=== PATIENT | female | born 1960 | race Asian ===

== ENCOUNTER 2017-02-18 21:54 | Inpatient (IN) | payer BC, MEDICAID ==
--- NOTE | 2017-02-18 22:19 | ED Physician Chart ---
Chief Complaint/HPI - Patient Information Date Seen:: 02/18/17 Time Seen:: 22:05 Chief Complaint:: Recurrent nausea/vomiting since 7 pm today. History of Present Illness:: Brought in by private auto for the above reason. Vomitus consisted of gastric content. No hematemesis. Pt has had intermittent upper abdominal cramp. No known precipitating, aggravating, or relieving factors. No fever. Last BM just before coming to ER, normal in color/consistency. No hematochezia or melena. Pt ate unusal foodstuff (raw cucumber) prior to onset of her symptoms. No recent travel, antibiotic use, or ingestion of contaminated food or liquid. Allergies:: NKA Vitals:: see Nurse Note. Historian:: Patient Family MD/PCP:: Dr. Patricia LMP:: Postmenopausal Review:: Nurse's Note Reviewed Review of Systems - Review of Systems General/Constitutional: No fever, No chills, No weight loss, No weakness, No diaphoresis, No edema, No loss of appetite Skin: No skin lesions, No rash, No bruising Head: No headache, No light-headedness Eyes: No loss of vision, No pain, No diplopia ENT: No earache, No nasal drainage, No sore throat Neck: No neck pain, No swelling, No thyromegaly, No stiffness, No mass noted Cardio Vascular: No chest pain, No palpitations Pulmonary: No SOB, No cough, No wheezing GI: Nausea, Vomiting, No diarrhea, Pain (cramp), No melena, No hematochezia, No constipation, No hematemesis G/U: No dysuria, No frequency, No hematuria Tear Down Man: No vaginal discharge, No abnormal vaginal bleed Musculoskeletal: No bone or joint pain, No back pain, No muscle pain Endocrine: No polyuria, No polydipsia Psychiatric: No prior psych history Hematopoietic: No bruising, No lymphadenopathy Allergic/Immuno: No urticaria, No angioedema Neurological: No syncope, No focal symptoms, No weakness, No paresthesia, No headache, No dizziness, No confusion, No vertigo Past Medical History - Past Medical History Past Medical History: No significant medical hx Family History: None Social History: Non Smoker, No Alcohol, No Drug Use, , Lives Alone, Employed Employment:: bilingual student tutor Surgical History: None Psychiatricy History: None Medication: None (9+8) Family Medical History - Family Member Mother History Unknown: Yes Physical Exam - Physical Examination General/Constitutional: Awake, Well-developed, well-nourished, Alert, GCS 15, Non-toxic appearing, Ambulatory Other Gen/Cons comments:: Breathes comfortably, speaks clearly, and ambulates without difficulty. Pt appears to be in moderate distress due to abdominal pain. Head: Atraumatic Eyes: Lids, conjuctiva normal, PERRL, EOMI Other Eyes comments:: anicteric sclera. Skin: Nl inspection, No rash, No skin lesions, No ecchymosis, Well hydrated, No lymphadenopathy ENMT: External ears, nose nl, Nasal exam nl, Lips, teeth, gums nl, Oropharynx nl Neck: Nontender, Full ROM w/o pain, No JVD, No nuchal rigidity, No mass, No stridor Respiratory: Nl effort/Exclusion, Clear to Auscultation, No Wheeze/Rhonchi/Rales Cardio Vascular: RRR, No murmur, gallop, rubs GI: No organomegaly, No hernia, Normal BS's, Nondistended, No mass/bruits, No McBurney tenderness Other GI comments:: Tenderness to palpation at epigastric region. No R/G. Negative Jose's, Soto' s and Hartley Aburto's signs. : No CVA tenderness Extremities: No tenderness or effusion, Full ROM, normal strength in all extremities, No edema, Normal digits & nails Neuro/Psych: Alert/oriented (oriented x 3), Normal gait, No focal deficits Labs/Radiology/EKG Results - Lab Results Results: Laboratory Tests 02/18/17 02/18/17 02/18/17 22:23 22:38 22:38 WBC 13.6 H RBC 4.35 Hgb 13.4 Hct 39.1 MCV 89.9 MCH 30.8 MCHC Differential 34.2 RDW 12.9 Plt Count 200 MPV 8.5 Neutrophils % 82.3 H Lymphocytes % 9.2 L Monocytes % 6.9 Eosinophils % 1.2 Basophils % 0.4 PT 9.7 INR 0.93 PTT (Actin FS) 23.7 L Sodium Potassium Chloride Carbon Dioxide Anion Gap BUN Creatinine Est GFR ( Amer) Est GFR (Non-Af Amer) BUN/Creatinine Ratio Glucose Whole Bld Lactic Acid Calcium Total Bilirubin AST ALT Alkaline Phosphatase Creatine Kinase Troponin I Total Protein Albumin Globulin Albumin/Globulin Ratio Amylase Lipase Urine Source CLEAN C Urine Color YELLOW Urine Clarity HAZY Urine pH 8.5 Ur Specific [place] 1.015 Urine Protein 30 H Urine Glucose (UA) NEGATIVE Urine Ketones TRACE Urine Blood NEGATIVE Urine Nitrate NEGATIVE Urine Bilirubin NEGATIVE Urine Urobilinogen 0.2 Ur Leukocyte Esterase NEGATIVE Urine RBC 0-2 Urine WBC 0-2 Ur Epithelial Cells FEW Amorphous Sediment MODERATE PHOSPHATES Urine Bacteria FEW 02/18/17 02/18/17 02/18/17 22:38 22:38 22:38 WBC RBC Hgb Hct MCV MCH MCHC Differential RDW Plt Count MPV Neutrophils % Lymphocytes % Monocytes % Eosinophils % Basophils % PT INR PTT (Actin FS) Sodium 135 L Potassium 3.5 Chloride 102 Carbon Dioxide 26.5 Anion Gap 10.0 BUN 21 Creatinine 0.7 Est GFR ( Amer) > 60.0 Est GFR (Non-Af Amer) > 60.0 BUN/Creatinine Ratio 30.0 Glucose 132 H Whole Bld Lactic Acid 2.27 H* Calcium 9.6 Total Bilirubin 0.6 AST 82 H ALT 51 Alkaline Phosphatase 60 Creatine Kinase 81 Troponin I Total Protein 7.4 Albumin 4.5 Globulin 2.9 Albumin/Globulin Ratio 1.6 Amylase 46 Lipase 65 Urine Source Urine Color Urine Clarity Urine pH Ur Specific [place] Urine Protein Urine Glucose (UA) Urine Ketones Urine Blood Urine Nitrate Urine Bilirubin Urine Urobilinogen Ur Leukocyte Esterase Urine RBC Urine WBC Ur Epithelial Cells Amorphous Sediment Urine Bacteria 02/18/17 22:38 WBC RBC Hgb Hct MCV MCH MCHC Differential RDW Plt Count MPV Neutrophils % Lymphocytes % Monocytes % Eosinophils % Basophils % PT INR PTT (Actin FS) Sodium Potassium Chloride Carbon Dioxide Anion Gap BUN Creatinine Est GFR ( Amer) Est GFR (Non-Af Amer) BUN/Creatinine Ratio Glucose Whole Bld Lactic Acid Calcium Total Bilirubin AST ALT Alkaline Phosphatase Creatine Kinase Troponin I < 0.01 L Total Protein Albumin Globulin Albumin/Globulin Ratio Amylase Lipase Urine Source Urine Color Urine Clarity Urine pH Ur Specific [place] Urine Protein Urine Glucose (UA) Urine Ketones Urine Blood Urine Nitrate Urine Bilirubin Urine Urobilinogen Ur Leukocyte Esterase Urine RBC Urine WBC Ur Epithelial Cells Amorphous Sediment Urine Bacteria - Radiology Results Results: CT of abdomen and pelvis without IV contrast: There are two calcific densities seen within the distal common bile duct measuring 3 and 4 mm, likely representing choledocholitiasis. The common bile duct is mildly dilated measuring 9 mm. Gallstone with out CT evidence of acute cholecystitis. Additional findings: 8 mm hypodensity witin hepatic segment, which is nonspecific. the spleen, pancreas, and adrenal glands are unremarkable. The kidneys, ureters and urinary bladder are unremarkable. Uterus and adnexa are unremarkable. the appendix is unremarkable. Stomach, small bowel, and colon are unremarkable. No free fluid. No free air. No acute osseous abnormality. Official report per Dr. Leoncio Grimm, radiologist. - EKG Interpretations EKG Time:: 23:29 Rate & Rhythm: NSR with sinus dysrrhythmia. VR 50 to 100 Comments:: No acute ischemic changes. ED Septic Shock - . Is Septic Shock (SBP<90, OR Lactate>4 mmol\L) present?: No Reassessment (Disposition) - Reassessment Reassessment:: 2335 Pt has been repeatedly evaluated. Pt overall feels better. Pt's VR varies from 50 to 100. 12 lead EKG was done and reviewed. 0004 Pt remains stable. Her upper abdominal pain recurs. Pt requests more pain control. Lab and EKG findings have been reviewed with pt. CT report is pending. 0100 CT report just became available. CT findings have been reviewed with pt. Management plan has been discussed. Admitting physician is to be contacted. 0115 Case was discussed with Dr. Lai with pertinent H & P, EKG, CT, and lab findings reviewed. Pt is to be admitted to [facility] under his care. Reassessment Condition:: Improved - Diagnosis Diagnosis:: Abdominal pain related to acute choledocholithiasis, stable and improved. Sinus dysrrhythmia. Consider sick sinus syndrome. - Patient Disposition Admitted to:: Telemetry Admitting Medical Physician:: Dori Lai Time:: 01:18 Condition at Disposition:: Stable, Improved
[2017-02-18] MEDS ORDERED: HYDROmorphone 1 mg/mL 1mL Syr IVP STA (22:32)
[2017-02-18] MEDS ORDERED: HYDROmorphone 1 mg/mL 1mL Syr ONE (22:41)
[2017-02-18 22:46] LABS: % BASOPHILS 0.4 % (0.0-2.0); % EOSINOPHILS 1.2 % (0.0-5.0); % LYMPHOCYTES 9.2 % (20.0-50.0); % MONOCYTES 6.9 % (2.0-10.0); % NEUTROPHILS 82.3 % (40.0-80.0); HEMATOCRIT 39.1 % (35.0-45.0); HEMOGLOBIN 13.4 gm/dL (11.7-15.5); MEAN CELL VOLUME 89.9 fl (81-100); MEAN CORPUSCULAR HEMOGLOBIN 30.8 pg (27.0-31.0); MEAN CORPUSCULAR HGB CONC 34.2 pg (28.0-36.0); MEAN PLATELET VOLUME 8.5 fl; NEUTROPHILE ABSOLUTE 11.1 Th/cmm (1.8-8.0); PLATELET COUNT 200 Th/cmm (150-400); RED BLOOD COUNT 4.35 Mil/cmm (3.80-5.10); RED CELL DISTRIBUTION WIDTH 12.9 % (11.5-20.0)
[2017-02-18 22:50] LABS: WHITE BLOOD COUNT 13.6 Th/cmm (4.8-10.8)
[2017-02-18 23:00] LABS: INR 0.93 (0.5-1.4); PROTHROMBIN TIME (TEST) 9.7 SECONDS (9.5-11.5)
[2017-02-18 23:02] LABS: ALB/GLOB RATIO 1.6 (1.0-1.8); ALKALINE PHOSPHATASE 60 U/L (34-104); AMYLASE SERUM 46 U/L (29-103); BILIRUBIN,TOTAL 0.6 mg/dL (0.3-1.0); BUN - UREA NITROGEN 21 mg/dL (7-25); CALCIUM SERUM 9.6 mg/dL (8.6-10.3); CARBON DIOXIDE 26.5 mEq/L (21.0-31.0); CHLORIDE 102 mEq/L (98-107); CREATININE - SERUM 0.7 mg/dL (0.6-1.2); GLUCOSE 132 mg/dL (70-105); LIPASE 65 U/L (11-82); POTASSIUM SERUM 3.5 mEq/L (3.5-5.1); SGOT 82 U/L (13-39); SGPT/ALT 51 U/L (7-52); SODIUM SERUM 135 mEq/L (136-145)
[2017-02-18] MEDS ORDERED: Sodium Chloride 0.9% 500 ML IV ONE (23:22)
[2017-02-18 23:50] LABS: URINE BILIRUBIN NEGATIVE (NEGATIVE); URINE COLOR YELLOW; URINE GLUCOSE (UA) NEGATIVE (NEGATIVE); URINE KETONE TRACE mg/dL (NEGATIVE)
[2017-02-18 23:51] LABS: URINE AMORPHOUS SEDIMENT MODERATE PHOSPHATES (NONE SEEN); URINE BACTERIA FEW /hpf (NONE SEEN); URINE BLOOD NEGATIVE (NEGATIVE); URINE EPITHELIAL CELLS FEW /lpf (FEW); URINE PH 8.5; URINE PROTEIN 30 mg/dL (NEGATIVE); URINE RBC 0-2 /hpf (0-5); URINE UROBILINOGEN 0.2 E.U./dL (0.2 - 1.0); URINE WBC 0-2 /hpf (0-5)
[2017-02-19] MEDS ORDERED: HYDROmorphone 1 mg/mL 1mL Syr IVP STA (00:02)
[2017-02-19] MEDS ORDERED: HYDROmorphone 1 mg/mL 1mL Syr ONE (00:10)
[2017-02-19] MEDS ORDERED: Ampicillin Sodium/Sulbactam 3 GM in Sodium Chloride 0.9% 100 ML IV ONE (01:03)
--- NOTE | 2017-02-19 03:14 | Admit Criteria Form ---
Admit Criteria Forms - Admit Criteria Diagnosis: ABDOMINAL PAIN Clinical Indications for Admission to Inpatient Care (Place 'X' for any and all applicable criteria): Admission is indicated for ANY ONE of the following(1)(2)(3)(4)(5): [X]I. Inpatient admission required rather than observation care (Also use Abdominal Pain: Observation Care, as appropriate) because of ANY ONE of the following: [ ]a) Severe pain requiring acute inpatient management [X]b) Identification of etiology/finding that requires inpatient care (eg, aortic dissection, free air) [ ]c) Absent bowel sounds with complete ileus(6) [ ]d) Suspected toxic megacolon [ ]e) Severe electrolyte abnormalities requiring inpatient care [ ]f) High fever or infection requiring inpatient admission as indicated by ANY ONE of following(7)(8): [ ] i) Appropriate outpatient or observational care antimicrobial treatment unavailable, not effective, or not feasible [ ] ii) Documented bacteremia [ ] iii) Temperature > 104.9 degrees F (oral) [ ] iv) T >103.1 F (oral) or < 96.8 F(rectal) that does not respond to all emergency treatment measures [ ]g) Signs of intestinal obstruction [B] [ ]h) Hemodynamic instability [ ]i) IV fluid to replace significant ongoing losses (greater than 3 L/m2 per day) (12)(13) [ ]j) Percutaneous or open drainage (eg, abscess, biliary tract ) procedures [ ]k) Parenteral nutrition regimen that must be implemented on inpatient basis [ ]l) Other condition,treatment or monitoring requiring inpatient admission. [ ]II. Peritoneal signs present [ ]III. Surgery needed that cannot be performed on an ambulatory basis. [ ]IV. Evaluation requires patient to not eat or drink for extended period ( eg, more than 24 hours). [ ]V. Contraindications and/or Inappropriate clinical situations for Observational Care in patients with abdominal pain, when ANY ONE of the following is required: [ ]a) Thorough evaluation is required to prevent catastrophic events due to delays in diagnosing (e.g.Mesenteric ischemia) 1,3 [ ]b) Patient with severe pathology or with chronic symptoms unlikely to improve in the ED stay (3) [ ]. General contraindications and/or Inappropriate clinical situations for Observational Care in patients with abdominal pain, when ANY ONE of the following is required: [ ]a) Prediction of prolongation of LOS based on ANY ONE of the following may be considered as a contraindication for observational care 2, 3, 4, 5, 6, 7, 8, 9, 10, 11 [ ]i) Age > 65 yrs. [ ]ii) Patient arriving by ambulance [ ]iii) Patient with high acuity [ ]iv) Patient requiring vital sign monitoring [ ]v) Patient on IV medication [ ]b) Systolic blood pressures 180mmHg 3,12 [ ]c) Patient with altered mental status including delirium and other alteration of consciousness, (3) [ ]d) Patient whose discharge disposition will be to a senior living home or rehabilitation home should not be managed in Emergency Department Observation Unit. CMS rule requires 3 days hospital stay before such placement.3,13 [ ]e) Patient with failure to thrive due to broad array of etiologies 3,16,17 [ ]f) Inability to ambulate 3,14 Extended stay beyond goal length of stay may be needed for(2)(3): [ ]a) Persistent abdominal pain with suspected intra-abdominal process [ ]b) Diagnosed condition requiring continued stay (e.g., pancreatitis, complicated diverticulitis) [ ]c) Surgery (e.g., colectomy) The original [employer] content created by [employer] has been revised. The portions of the content which have been revised are identified through the use of italic text or in bold, and [email or web address] has neither reviewed nor approved the modified material.All other unmodified content is copyright [email or web address]. Please see references footnoted in the original [email or web address] edition 2016
[2017-02-19] MEDS ORDERED: Morphine Sulfate 2 mg/mL 1mL Syr IVP PRN (03:54)
[2017-02-19] MEDS ORDERED: Levofloxacin 750mg/150mL 750 MG/150 ML BAG IV SCH (04:00)
[2017-02-19] MEDS: metroNIDAZOLE 500mg/NS 100mL 500 MG/100 ML BAG IV SCH ×2 (05:28→13:28)
[2017-02-19 07:23] LABS: % BASOPHILS 0.1 % (0.0-2.0); % EOSINOPHILS 0.1 % (0.0-5.0); % LYMPHOCYTES 8.4 % (20.0-50.0); % MONOCYTES 2.8 % (2.0-10.0); % NEUTROPHILS 88.6 % (40.0-80.0); HEMATOCRIT 34.8 % (35.0-45.0); HEMOGLOBIN 12.1 gm/dL (11.7-15.5); MEAN CELL VOLUME 90.3 fl (81-100); MEAN CORPUSCULAR HEMOGLOBIN 31.3 pg (27.0-31.0); MEAN CORPUSCULAR HGB CONC 34.6 pg (28.0-36.0); MEAN PLATELET VOLUME 8.8 fl; NEUTROPHILE ABSOLUTE 8.5 Th/cmm (1.8-8.0); PLATELET COUNT 179 Th/cmm (150-400); RED BLOOD COUNT 3.86 Mil/cmm (3.80-5.10); RED CELL DISTRIBUTION WIDTH 12.9 % (11.5-20.0)
[2017-02-19 07:41] LABS: ALB/GLOB RATIO 1.6 (1.0-1.8); ALKALINE PHOSPHATASE 56 U/L (34-104); ANION GAP 12.2 (7.0-16.0); BILIRUBIN,TOTAL 0.6 mg/dL (0.3-1.0); BUN - UREA NITROGEN 18 mg/dL (7-25); CALCIUM SERUM 8.8 mg/dL (8.6-10.3); CARBON DIOXIDE 23.6 mEq/L (21.0-31.0); CHLORIDE 106 mEq/L (98-107); CREATININE - SERUM 0.6 mg/dL (0.6-1.2); GLUCOSE 137 mg/dL (70-105); POTASSIUM SERUM 3.8 mEq/L (3.5-5.1); SGOT 65 U/L (13-39); SGPT/ALT 64 U/L (7-52); SODIUM SERUM 138 mEq/L (136-145)
[2017-02-19 08:10] LABS: WHITE BLOOD COUNT 9.6 Th/cmm (4.8-10.8)
[2017-02-19] MEDS ORDERED: VTE Chemical Prophylaxis Screen/Admission MC PRN (09:10)
--- NOTE | 2017-02-19 12:15 | Diagnostic Imaging Report ---
CT scan abdomen and pelvis without intravenous contrast HISTORY: Pain Total DLP equals 422 CTDI equals 8.3 Axial sections were obtained from the xiphoid process down to the pubic symphysis. There is an elongated left lobe that extends across the abdomen. Punctate calcification seen in the left lobe that may be associated with old inflammatory disease. There is a distended gallbladder with cholelithiasis. The spleen appears normal. No focal parenchymal abnormality seen in the pancreas. There are several punctate calcifications noted within the common bile duct. Findings consistent with choledocholithiasis. No focal renal lesions. The exam of the pelvis demonstrates preservation of normal fat planes. No abnormal soft tissue masses or abnormal fluid collections. IMPRESSION: 1. Cholelithiasis with evidence of small calculi in the common bile duct (choledocholithiasis).
--- NOTE | 2017-02-19 13:35 | Diagnostic Imaging Report ---
Abdominal ultrasound HISTORY: Pain The liver exhibits a normal size. There is an approximate 1.4 cm echogenic density within the right lobe. The sonographic appearance is suggestive of an incidental hemangioma. A follow-up ultrasound exam in 3 months and correlation with liver function test recommended. The exam of the gallbladder demonstrates an approximate 1.2 cm nonmobile intraluminal echogenic density. Finding may be associated with an adherent calculus. A cholesterol polyp could mimic the appearance. There is poor visualization of the common bile duct due to bowel gas. No obvious dilatation. Pancreas is not well seen due to bowel gas. The kidneys appear normal bilaterally. No other retroperitoneal or intra-abdominal abnormalities. IMPRESSION: 1. 1.2 cm nonmobile intraluminal echogenic density within the gallbladder. The finding may be associated with an adherent calculus. A cholesterol polyp could mimic the appearance. 2. 1.4 cm echogenic density within the right lobe of the liver. The sonographic appearance is consistent with an incidental hemangioma. A follow-up ultrasound exam in 3 months to confirm stability recommended. Correlation with liver function tests also recommended.
== END 2017-02-19 16:30 | disposition left against medical advice (07) | DRG 446 ==
LOC: ER 21:54 → ICU 02-19 01:15
PROVIDERS: ADMIT Family Medicine; ATTEND Family Medicine
DX: K80.50 Calculus of bile duct without cholangitis or cholecystitis without obstruction (principal); I49.9 Cardiac arrhythmia, unspecified
CPT/HCPCS: 36415-UA; 76700-TC; 80053-TC; 81001-TC; 82150-TC; 82550-TC; 83605; 83690-TC; 84484-TC; 85025-TC; 85610-TC; 90799; 93005; 96374; 96375; C9113; J0295; J1170; J1956; J2405; J3490; J7040